=== PATIENT | female | born 1955 | race Caucasian/White ===

== ENCOUNTER 2019-09-08 16:12 | Emergency (ER) | payer OTHER ==
[~2019-09-08] VITALS: Ht 165.1 cm; Wt 88.5 kg
[~2019-09-08 16:12] MED LIST: CAND1TAB34 PO
[2019-09-08 16:25] VITALS: BP 144/96
--- NOTE | 2019-09-08 16:55 | NUR ---
PIPE BENDER AT BEDSIDE FOR US.
== END 2019-09-08 17:20 | disposition home or self-care (01) ==
LOC: ER 16:17
DX: I80.8 Phlebitis and thrombophlebitis of other sites (principal); R11.2 Nausea with vomiting, unspecified; I10 Essential (primary) hypertension; E11.9 Type 2 diabetes mellitus without complications; Z98.890 Other specified postprocedural states; Z79.899 Other long term (current) drug therapy
CPT/HCPCS: 93971-TC